=== PATIENT | female | born 1940 | race African-American/Black ===

== ENCOUNTER 2024-07-15 19:14 | Emergency (ER) | payer OTHER ==
[~2024-07-15] VITALS: Ht 162.6 cm; Wt 49.0 kg
[2024-07-15 19:16] VITALS: O2SAT 98
[2024-07-15] MEDS: LIDOCAINE HCL 1% 20ML VIAL INFIL ONE (23:11)
[2024-07-16 01:12] VITALS: BP 130/64; PULSE 82; RESP 16; TEMP 37.2; O2SAT 98
== END 2024-07-16 01:25 | disposition home or self-care (01) ==
LOC: ER 19:14
DX: S63.252A Unspecified dislocation of right middle finger, initial encounter (principal); S09.90XA Unspecified injury of head, initial encounter; E78.00 Pure hypercholesterolemia, unspecified; I10 Essential (primary) hypertension; Z88.5 Allergy status to narcotic agent; Z98.890 Other specified postprocedural states; W05.0XXA Fall from non-moving wheelchair, initial encounter; Y93.89 Activity, other specified; Y92.89 Other specified places as the place of occurrence of the external cause; Y99.8 Other external cause status
CPT/HCPCS: 99284; 26770; 70450; 73080; 73090; 73130; 72125; J3490